=== PATIENT | female | born 1940 | race Caucasian/White ===

== ENCOUNTER 2018-01-25 06:54 | Day surgery (SDC) | payer OTHER ==
[2018-01-25] MEDS ORDERED: NA CHLORIDE 0.9% 500 ML ONE (07:29)
[2018-01-25] MEDS ORDERED: CYCLOPENTOLATE 1% OPTH 2 ML ONE (07:36)
[2018-01-25] MEDS ORDERED: BUPIVACAINE 0.25% PF 10 ML VIAL ONE (07:37)
[2018-01-25] MEDS ORDERED: CYCLOPENTOLATE 1% OPTH 2 ML OPTH ONE ×2 (07:46→07:54)
[2018-01-25] MEDS ORDERED: NS 0.9% VIAL 10 ML ONE (08:03)
[2018-01-25] MEDS ORDERED: BALANCED SALT IRRIG PLAIN 500 ML BTL IRR ONE (08:04)
[2018-01-25] MEDS ORDERED: MOXIFLOXACIN HCL 10 DROPS/ML **OR USE OPTH ONE (08:05)
[2018-01-25] MEDS ORDERED: DUOVISC 1 KIT OPTH ONE (08:05)
[2018-01-25] MEDS ORDERED: LIDOCAINE 2% MPF 5 ML VIAL ONE (08:05)
[2018-01-25] MEDS ORDERED: PROPOFOL 200 MG/20 ML VIAL IV ONE (08:05)
[2018-01-25] MEDS ORDERED: PHENYLEPHRINE 10% OPTH 5ML ONE (08:21)
--- NOTE | 2018-01-25 09:17 | P.BOP ---
Preoperative diagnosis: Nuclear sclerotic cataract and regular astigmatism OD Postoperative diagnosis: Same Primary procedure: Phacoemulsification with IOL OD Estimated blood loss: None Anesthesia: Local (Subtenon's infusion with anesthesia for cataract surgery) Complications: None Implants: [id number] +19.0 @ 16 degrees Transferred to: Other (Day surgery) Condition: Good
--- NOTE | 2018-01-25 13:49 | OP ---
Date of Procedure: 01/25/2018 Surgeon: Meera Mojica MD Anesthesiologist: Anand Mg CRNA. Preoperative Diagnosis: Nuclear sclerotic cataract and regular astigmatism, right eye. Operation Performed: Phacoemulsification with Toric intraocular lens implant, right eye. Anesthesia: Per cataract surgery. Complications: None Description Of Procedure: In day surgery, the patient was prepped with Betadine and draped. A conjunctival incision was made in the inferior nasal quadrant with Dang scissors. A sub-Tenon block consisting of 0.25% bupivacaine was placed through the conjunctival incision with a blunt cannula. A Honan balloon was placed over the eye and the patient was transferred to the operating room. In the operating room the patient was prepped and draped in the usual sterile fashion for ophthalmic surgery. A lid speculum was placed in the right eye. Two paracentesis sites were made superiorly and inferiorly in the limbal cornea. Viscoat was placed in the anterior chamber and a crescent blade was used to make a corneal groove and tunnel, and a keratome was used to enter the anterior chamber. Provisc was placed in the anterior chamber and a 360 degree capsulotomy was performed with a cystitome. The lens was hydrodissected with BSS and rotated freely. The lens was removed with a stop and chop technique. 14.09 phaco CDE was used to remove the lens. Residual cortex was removed with the irrigation and aspiration. Provisc was placed in the capsular bag. A [id number] +19.0 at 16 degrees lens was placed in the capsular bag without complications. Irrigation and aspiration was used to remove residual viscoelastic. The paracentesis sites were hydrated with BSS. The wound and paracentesis sites were inspected and found to be watertight. Vigamox 0.07 cc was placed intracamerally at the end of the procedure. The eye was irrigated with balanced salt solution. The eye was patched with a soft cotton patch and Ochoa metal shield. The patient was returned to day surgery in good condition. Comments: No lidocaine, epinephrine, or tetracaine was used for the case. Discharge Instructions: Ms. Alcala was discharged to home in good condition and is to follow up with Dr. Mojica in the morning. MILVIA/DEZ Voice ID: [id number] Report ID: [id number] MTDD
== END 2018-01-25 10:10 | disposition home or self-care (01) ==
LOC: OR 06:54
PROVIDERS: ATTEND Ophthalmology Retina Specialist
PROC: 08RJ3JZ Replacement of Right Lens with Synthetic Substitute, Percutaneous Approach (ICD-10-PCS; principal; 2018-01-25 08:30)
DX: H25.11 Age-related nuclear cataract, right eye (principal); H25.041 Posterior subcapsular polar age-related cataract, right eye; H52.221 Regular astigmatism, right eye
CPT/HCPCS: V2787

== ENCOUNTER 2023-12-29 07:59 | Day surgery (SDC) | payer OTHER ==
[2023-12-29 08:47] VITALS: BMI 23.3
[2023-12-29 08:47] LABS: Absolute Eosinophils 0.3 K/uL (0-0.5); Absolute Monocytes 0.7 K/uL (0.1-1.3); Absolute Neutrophil 1.8 K/uL (1.8-8.0); Basophils % 0.5 % (0-1.3); Eosinophils % 4.1 % (0-4.4); Lymphocytes % 58.7 % (15.3-44.8); MCH 32.1 pg (27.0-35.0); MCHC 33.3 g/dL (32.0-36.0); MCV 96.4 fL (80-100); MPV 8.4 fL (7.6-11.3); Monocytes % 10.5 % (3.3-12.3); Neutrophils % 26.2 % (41.7-73.7); Nucleated Red Blood Cells % 0.2 % (0-0); Platelets 225 thou/uL (152-406); RBC Red Blood Cell Count 3.73 M/uL (3.86-4.86); Red Cell Distribution Width 13.1 % (12.1-15.2)
[2023-12-29 08:50] LABS: PT Prothrombin Time 10.9 SECONDS (9.4-12.5); PTT, Activated Partial Thromb 31.7 SECONDS (24.3-36.9); Protime INR 0.99
[2023-12-29 09:10] LABS: ALT/SGPT 26 U/L (13-56); AST/SGOT 14 U/L (15-37); Albumin 3.4 g/dL (3.4-5.0); Albumin/Globulin Ratio 1.1 (1.1-1.8); Alkaline Phosphatase 47 U/L (45-117); Anion Gap 4.9 mEq/L (5.0-15.0); BUN Blood Urea Nitrogen 21 mg/dL (7-18); Bicarbonate 31 mEq/L (21-32); Bilirubin Total 0.4 mg/dL (0.2-1.0); Globulin 3.1 g/dL (2.3-3.5); Glomerular Filtration Rate 53 ml/min (=/>90); Glucose Level 131 mg/dL (74-106); Potassium 3.9 mEq/L (3.5-5.1); Protein, Total 6.5 g/dL (6.4-8.2); Sodium Level 141 mEq/L (136-145)
[2023-12-29 09:25] LABS: Bilirubin Direct < 0.2 mg/dL (0-0.2); Bilirubin Indirect, Calculated 0.2 mg/dL (0.2-0.8)
[2023-12-29] MEDS ORDERED: BUPIVACAINE 0.75% MPF 10 ML VIAL IV ONE (10:00)
--- NOTE | 2023-12-29 11:56 | RAD REPORT ---
EXAM DESCRIPTION: RAD - Lumbar Puncture For Dx - 12/29/2023 11:44 am CLINICAL HISTORY: Lumbar Spine 3 Views dated 06/11/2017 COMPARISON: None. TECHNIQUE: The procedure, risks and alternatives to the procedure were discussed with the patient in detail. After answering all questions, both oral and written consent were obtained. Time-out procedu re was performed. The patient was placed in an oblique prone position on the fluoroscopic table. The skin of the lower back was prepped and draped in the usual sterile fashion. After anesthetizing the skin and deeper sof t tissues with 1% lidocaine, a 22 gauge needle was advanced into the thecal sac at the L2-3 level. At the conclusion of the procedure the needle was withdrawn and a sterile bandage placed over the pun cture site. The patient tolerated the procedure well without immediate complications. Post-procedure care and precaution instructions were discussed with the patient before the LP procedure. Fluoroscopy time: 0.1 minutes Radiation dose: 9.843 mGy IMPRESSION: Successful fluoroscopic guided lumbar puncture. All obtained fluid was sent to the lab f or studies requested by the referring physician.
[2023-12-29 12:26] LABS: CSF Glucose 74 mg/dL (40-70)
[2023-12-29] MEDS ORDERED: TRAMADOL HCL 50 MG TAB PO ONE (13:10)
[2023-12-29] MEDS: TRAMADOL HCL 50 MG TAB ONE (13:18)
[2023-12-29 13:56] LABS: Fluid Total Volume 6.75 ml; Tube # #2
[2023-12-29 13:57] LABS: Appearance CLEAR (CLEAR); Body Fluid Source CSF; Body Fluid WBC 1 /mm^3; Color of Supernate Not Xanthochromic (Not Xantho); Color of fluid Pink (COLORLESS)
[2023-12-29 14:32] VITALS: BP 107/48; TEMP 96.6; O2SAT 100
== END 2023-12-29 13:50 | disposition home or self-care (01) ==
LOC: DS 07:59
PROVIDERS: ATTEND Psychiatry & Neurology Neurology with Special Qualifications in Child Neurology
PROC: 009U3ZX Drainage of Spinal Canal, Percutaneous Approach, Diagnostic (ICD-10-PCS; principal; 2023-12-29)
PROC: B01BZZZ Fluoroscopy of Spinal Cord (ICD-10-PCS; 2023-12-29)
DX: F03.90 Unspecified dementia, unspecified severity, without behavioral disturbance, psychotic disturbance, mood disturbance, and anxiety (principal); I10 Essential (primary) hypertension; E11.9 Type 2 diabetes mellitus without complications; E78.5 Hyperlipidemia, unspecified
CPT/HCPCS: 36415; 77003; 80048; 80076; 82542; 82945; 84157; 85025; 85610; 85730; 89050

== ENCOUNTER 2024-10-25 14:19 | Emergency (ER) | payer OTHER ==
--- OUTSIDE RECORDS SUMMARY | 2024-10-25 14:22 | XMS REPORT | Clinical Summary ---
Author Name Unknown Organization [facility] Address [address] [place] [address] Care Team Providers Care Drag Seiner Name Role Phone Rani Wade MD Unavailable [phone] Rosalva Harris MD Unavailable [phone] Luz Gomez APRN Primary Care Provider Allergies Active Allergy Reactions Criticality Noted Date Comments Epinephrine Anaphylaxis High 01/25/2018 Lidocaine-Epinephrine 02/16/2019 Patient passing out. Morphine 02/16/2019 Can't breath Sulfa (Sulfonamide Antibiotics) Swelling 02/16/2019 Swelling of the lips and can't breath. Hydrocodone-Acetaminophen Hives 02/16/2019 Medications levothyroxine (SYNTHROID, LEVOTHROID) 25 mcg tablet Take 1 tablet (25 mcg) by mouth daily. 9 Active spironolactone (ALDACTONE) 25 mg tablet Take 1 tablet (25 mg) by mouth daily. 9 Active ASPIRIN ORAL Take 81 mg by mouth daily. Active CALCIUM CARBONATE-VITAM IN D2 ORAL Take 1 capsule by mouth daily. Active fish oil-dha-epa 1,200-144-216 mg cap Take 1 tablet by mouth daily. 1 Active polyethylene glycol (GLYCOLAX) 17 gram/dose powder Take 17 g by mouth daily. Active ezetimibe (ZETIA) 10 mg tablet Take 1 tablet (10 mg) by mouth at bedtime. 0 Active turmeric (CURCUMIN MISC) 500 mg by miscellaneous route twice daily. Active GLUCOSAMINE HCL ORAL Take 1 tablet by mouth daily. Active UNABLE TO FIND 1 tablet daily. Med Name: viteye Active multivitamin (THERAGRAN) tablet Take 1 tablet by mouth daily. Active VITAMIN K2 ORAL Take 1 tablet by mouth daily. Active acetaminophen (TYLENOL) 500 mg tablet Take 1 tablet (500 mg) by mouth daily. Active raloxifene (EVISTA) 60 mg tabletIndicatio ns:Atypical lobular hyperplasia of breast,At increased risk of malignant neoplasm of breast Take 1 tablet (60 mg) by mouth daily. 90 tablet 3 3 Active predniSONE (DELTASONE) 20 mg tablet TAKE TWO (2) TABLET(S) BY MOUTH ONCE A DAY FOR 5 DAYS. 3 Active memantine (NAMENDA) 10 mg tablet TAKE ONE (1) TABLET(S) BY MOUTH TWICE A DAY. 3 Active gabapentin (NEURONTIN) 300 mg capsule TAKE ONE (1) CAPSULE(S) BY MOUTH THREE TIMES A DAY. 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 Overview (02/05/2021): bilateral bindery machine tender current use of raloxifene 10/27/2018 Overview (08/12/2021): will complete 5 years in 10/2023 Atypical lobular hyperplasia of left breast 06/2018 Encounters Date Type Department Care Team Description 11/10/2023 Documentation [facility] [address] [facility], 2nd Floor near [facility] [place] [id number] Rosa Bentley 10/27/2023 Telephone Undiagnosed Breast Clinic [address] [facility], 5th [place] [address] Sheila Grigsby RN Results 10/27/2023 Orders Only [facility] [address] [facility], 2nd [place] [address] Luz Gomez, DRILLING SUPERINTENDENT Encounter for other screening for malignant neoplasm of breast (Primary Dx); Atypical lobular hyperplasia of breast; At increased risk of malignant neoplasm of breast after 10/26/2023 Immunizations Name Administration Dates Next Due Influenza, split virus, triv alent, preservative 05/04/2019 Moderna SARS-CoV-2 Vaccination 04/19/2021,2020,06/25/2020 Surgical History Surgery Date Site/Laterality Comments APPENDECTOMY 06/29/1975 - 06/28/1976 C section opportunity COLONOSCOPY Many. Last time approx 2014 Twice polyps removed BREAST LUMPECTOMY 09/27/2018 - 10/26/2018 Atypical lobular hyperplasia (ALH). HYSTERECTOMY 06/29/1989 - 06/28/1990 Total hysterectomy in 1989 due to stomach/pelvic pain. SHOULDER SURGERY Left DIANA in 1999 ME COLONOSCOPY FLX DX W/COLLJ SPEC WHEN PFRMD 03/11/2021 N/A Procedure: DIAGNOSTIC FLEXIBLE COLONOSCOPY PROXIMAL TO SPLENIC FLEXURE; Surgeon: Josh Guerrero MD; Location: [facility]; Service: GASTROENTEROLOGY ME COLONOSCOPY FLX DX W/COLLJ SPEC WHEN PFRMD 03/19/2023 N/A Procedure: DIAGNOSTIC FLEXIBLE COLONOSCOPY PROXIMAL TO SPLENIC FLEXURE; Surgeon: Josh Guerrero MD; Location: [facility]; Service: GASTROENTEROLOGY Medical History Medical History Date Comments Hyperlipidemia 08/28/2003 Total 275. Used statin drug for 10 years until adverse react Migraine Age 18 Sinusitis About 21 years Unspecified lump in unspecif ied breast Always Cyst of breast [address] Marivel Lauren Colitis About 40 years ago Completely re covered Polyp of colon 2 removed Benign Endometriosis About 1989 Peter matter insi de uterus. 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 Ignore d for a year. as a result Urinary tract infection Daughter -Colon cancer Father Amos Rutherford Age 65 -1 6 inches of colon removef -Other cancer Father Amos Rutherford Lung canc er Alzheimer's disease Mother Relation Name Status Comments Brother Amos Rutherford . Daughter Father Amos Rutherford Mother Social History Tobacco Use Types Packs/Day Years Used Date Smoking Tobacco: Former Cigarettes 1 4 0 03/08/1961 - 11/15/1964 Smokeless Tobacco: Never Tobacco Cessation:Counseling Given: Not Answered Comments:Stupid during college Alcohol Use Standard Drinks/Week Comments Yes 0 (1 standard drink = 0.6 oz pur e alcohol) Not even that much Comments No Sex and Gender Information Value Date Recorded Sex Assigned at Female 03/05/2021 9:13 AM CDT Legal Sex Female 1:29 PM CDT Gender Identity Female 02/11/2019 9:43 PM CDT Sexual Orientation Straight 02/11/2019 9: 43 PM CDT Obstetrics History Para Term AB IAB SAB Ectopic Multiple Livin g Live Births 2 2 2 Date Outcome GA Total Labor Labor/2nd/3rd Weight Sex Type Anes PTL Muriel A1 A5 Name Clin Para Para Comments Menarche: at age 14 Parity: at age 29 OBC: <1 year HRT: none Plan of Treatment Upcoming Encounters Date Type Department Care Team (Late st Contact Info) Description 11/24/2024 12:15 PM CDT Appointment Breast Imaging [address] [facility], 5th [place] [address] Luz Gomez, DRILLING SUPERINTENDENT [address] [place] [address] [email or web address] 11/24/2024 12:50 PM CDT Appointment Breast Imaging [address] [facility], 5th [place] [address] Luz Gomez, DRILLING SUPERINTENDENT [address] [place] [address] [email or web address] 11/24/2024 3:20 PM CDT Office Visit [facility] ([facility]) [address] [facility], [address] [place] [address] Luz Gomez, DRILLING SUPERINTENDENT [address] [place] [address] [email or web address] [facility] Mamie Melendez, DRILLING SUPERINTENDENT [address] [place] [address] [email or web address] 03/28/2026 8:30 AM CDT Telemedicine MD [facility] - GI, Hepatology & Nutrition [address] [place] [address] Josh Guerrero MD [address] [place] [address] [email or web address] Health Maintenance Due Date Last Done Comments Pneumococcal Vaccine: 50+ Ye ars (1 of 1 - PCV) 1992 COVID-19 Vaccine (2023- season) 2024 04/19/2021, 2020, 06/25/2020 Influenza Vaccine (#1) 2024 05/04/2019 Insurance A[employer] MEDICARE PPO AET[employer] MEDICARE PPO Care Teams Drag Seiner Relationship Specialty Start Date End Date Rani Wade MD [email or web address] PCP - External Follow Up A Obstetrics/Gynecology 02/04/19 Rosalva Harris MD [address] [id number] PCP - External Follow Up B General Surgery 02/16/19 Luz Gomez APRN [address] [place] [address] [email or web address] [email or web address] PCP - General Family Practice 09/08/22
[2024-10-25 15:24] LABS: Absolute Basophils 0.1 K/uL (0-0.5); Absolute Eosinophils 0.2 K/uL (0-0.5); Absolute Lymphocytes (CBC) 5.6 K/uL (0.7-4.9); Absolute Monocytes 1.1 K/uL (0.1-1.3); Absolute Neutrophil 8.7 K/uL (1.8-8.0); Basophils % 0.8 % (0-1.3); Eosinophils % 1.5 % (0-4.4); Hematocrit 37.8 % (36.0-45.0); Hemoglobin 12.8 g/dL (12.0-15.0); Lymphocytes % 35.8 % (15.3-44.8); MCH 31.5 pg (27.0-35.0); MCHC 33.8 g/dL (32.0-36.0); MCV 93.2 fL (80-100); MPV 9.1 fL (7.6-11.3); Monocytes % 6.9 % (3.3-12.3); Nucleated Red Blood Cells % 0.1 % (0-0); Platelets 203 thou/uL (152-406); RBC Red Blood Cell Count 4.05 M/uL (3.86-4.86); Red Cell Distribution Width 13.8 % (12.1-15.2)
[2024-10-25 15:48] LABS: Anion Gap 7.9 mEq/L (5.0-15.0)
[2024-10-25 15:50] LABS: Potassium 4.9 mEq/L (3.5-5.1)
--- NOTE | 2024-10-25 16:10 | RAD REPORT ---
EXAMINATION: Head C Spine Mpr Wo Con CLINICAL INDICATION: Female, 84 years old. TRAUMA TECHNIQUE: Axial CT images from the skull base to the vertex without intravenous contrast. Axial CT i mages through the cervical spine were obtained without intravenous contrast. Sagittal and coronal reformatted images were created from the data set. Coronal and sagittal reformatted images were creat ed from the data set. One or more of the following dose reduction techniques were used: Automated exposure control, adjustment of the mA and/or kV according to patient size, and/or iterative reconstr uction. Unless otherwise specified, incidental findings do not require dedicated imaging follow-up. [id number]. COMPARISON: MRI head 08/03/2024 FINDINGS: Head: INTRACRANIAL: No acute intracranial hemorrhage. No hydrocephalus. No mass effect or midline shift. Mi ld chronic small vessel ischemic changes.Mild cerebral atrophy. VASCULATURE: No visualized abnormalities in the arteries or dural venous sinuses. SCALP/SKULL: No calvarial fracture identified. No acute soft tissue abnormality. SINUSES: Opacified left maxillary sinus with wall thickening is likely chronic.. No significant masto id fluid. Cervical spine: ALIGNMENT: The cervical spine has normal alignment without scoliosis or spondylolisthesis. BONE: Vertebral body heights are maintained. No aggressive osseous lesions. DEGENERATIVE: Multilevel cervical spondylosis with evidence of bilateral neural foraminal narrowing. No high grade central spinal stenosis. Varying degrees of bilateral neural foraminal narrowing noted. No high-grade central spinal stenosis. SOFT TISSUE: No significant abnormalities in the soft tissue of the neck. The visualized lung apices are clear. IMPRESSION: No acute intracranial abnormality. No acute fracture or traumatic malalignment of the cervical spine.
--- NOTE | 2024-10-25 16:37 | ER ---
Nurse's Notes [facility] Name: Nathalia Alcala Age: 84 yrs Sex: Female : 1940 Arrival Date: 10/25/2024 Time: 14:19 Bed 15 Private MD: Diagnosis: Postconcussional syndrome Presentation: 10/25 14:35 Chief complaint: Patient states: headaches s/p fall X 1week. + hit head, unsure if she iw passed out. Coronavirus screen: At this time, the client does not indicate any symptoms associated with coronavirus-19. Ebola Screen: No symptoms or risks identified at this time. Initial Sepsis Screen: Does the patient meet any 2 criteria? No. Patient's initial sepsis screen is negative. Does the patient have a suspected source of infection? No. Patient's initial sepsis screen is negative. Risk Assessment: Do you want to hurt yourself or someone else? Patient reports no desire to harm self or others. 14:35 Method Of Arrival: Wheelchair iw 14:35 Acuity: KHALIF 3 iw 14:36 Onset of symptoms was October 18, 2024. iw Triage Assessment: 14:38 General: Appears in no apparent distress. Behavior is calm, cooperative. Pain: iw Complains of pain in head and back of head. Neuro: Level of Consciousness is awake, alert, obeys commands. 15:00 Headache History: Denies prior headaches. Pain: Pain began 1 week ago Also complains kj2 of. Pain: Pain currently is 6 out of 10 on a pain scale. Historical: - Allergies: 14:36 Sulfa (Sulfonamide Antibiotics); iw 14:36 Morphine; iw 14:36 Lidocaine-Epinephrine; iw 14:36 Vicodin; iw 14:36 Wasps; iw - Immunization history:: Adult Immunizations unknown. - Infectious Disease History:: Denies. - Social history:: Smoking status: Patient denies any tobacco usage or history of. Screenin:50 [facility] ED Fall Risk Assessment (Adult) History of falling in the last 3 months, kj2 including since admission No falls in past 3 months (0 pts) Confusion or Disorientation No (0 pts) Intoxicated or Sedated No (0 pts) Impaired Gait No (0 pts) Mobility Assist Device Used No (0 pt) Altered Elimination No (0 pt) Score/Fall Risk Level 0 - 2 = Low Risk Maintained a safe environment, Hourly rounding (assess needs \T\ fall precautionary measures) done. Abuse screen: Denies threats or abuse. Denies injuries from another. Nutritional screening: No deficits noted. Tuberculosis screening: No symptoms or risk factors identified. Assessment: 14:50 General: Appears in no apparent distress. Behavior is cooperative. Pain: Complains of kj2 pain in back of head and head Pain currently is 6 out of 10 on a pain scale. Neuro: Level of Consciousness is awake, alert, obeys commands, Oriented to person, place, time, situation. Cardiovascular: Patient's skin is warm and dry. Respiratory: Airway is patent Respiratory effort is even, unlabored. GI: No signs and/or symptoms were reported involving the gastrointestinal system. : No signs and/or symptoms were reported regarding the genitourinary system. 15:50 Reassessment: Patient appears in no apparent distress at this time. Patient and/or kj2 family updated on plan of care and expected duration. Pain level reassessed. Patient is alert, oriented x 3, equal unlabored respirations, skin warm/dry/pink. 16:49 Reassessment: Patient appears in no apparent distress at this time. Patient and/or kj2 family updated on plan of care and expected duration. Pain level reassessed. Patient is alert, oriented x 3, equal unlabored respirations, skin warm/dry/pink. Vital Signs: 14:35 BP 122 / 56; Pulse 56; Resp 16; Temp 98.6; Pulse Ox 99% on R/A; iw 15:50 BP 118 / 58; Pulse 60; Resp 18; Pulse Ox 100% ; kj2 16:50 BP 107 / 54; Pulse 62; Resp 18; Temp 98; Pulse Ox 100% ; kj2 Sandee Coma Score: 16:36 Eye Response: spontaneous(4). Motor Response: obeys commands(6). Verbal Response: sb4 oriented(5). Total: 15. ED Course: 14:25 Patient arrived in ED. cj3 14:26 Henny Gunter PA-C is PHCP. sb4 14:26 Jose Earl MD is Attending Physician. sb4 14:36 Triage completed. iw 14:37 Arm band placed on. iw 14:54 Gisela Sanchez, ROXANA is Primary Nurse. ld1 15:00 Patient has correct armband on for positive identification. Bed in low position. Call kj2 light in reach. Provided Education on: call light. 15:18 Inserted saline lock: 20 gauge in right antecubital area, using aseptic technique. kj2 Blood collected. Flushed with 10 mL NS. 15:46 Head C Spine Mpr Wo Con In Process Unspecified. EDMS 16:37 Ramos Moreland MD is Referral Physician. sb4 16:51 No provider procedures requiring assistance completed. kj2 16:53 IV discontinued, intact, bleeding controlled, No redness/swelling at site. Pressure kj2 dressing applied. Administered Medications: 17:03 Drug: Meclizine PO 25 mg PO once Route: PO; kj2 17:03 Follow up: Response: No adverse reaction kj2 17:03 Follow up: Response: No adverse reaction kj2 Medication: 14:50 VIS not applicable for this client. kj2 Outcome: 16:37 Discharge ordered by MD. sb4 16:53 Discharged to home ambulatory, kj2 16:53 Condition: stable 16:53 Discharge instructions given to patient, family, Instructed on discharge instructions, follow up and referral plans. Demonstrated understanding of instructions, follow-up care, 17:04 Patient left the ED. kj2 Signatures: Dispatcher [employer] Amanda Coelho, RN RN iw Gisela Sanchez RN RN ld1 Henny Gunter, PA-C PA-C sb4 Jemma Pitts RN RN kj2 Jerilyn Da Silva cj3 Corrections: (The following items were deleted from the chart) 14:37 14:35 Chief complaint: Patient states: headaches s/p fall , + hit head, unsure if she iw passed out iw 15:25 15:05 In radiology for Head C Spine MPR Wo Con+CT.RAD.BRZ. EDMS EDMS
--- NOTE | 2024-10-25 16:37 | EDPHYS ---
Physician Documentation [facility] Name: Nathalia Alcala Age: 84 yrs Sex: Female : 1940 Arrival Date: 10/25/2024 Time: 14:19 Bed 15 Private MD: ED Physician Jose Earl HPI: 10/25 14:42 This 84 yrs old Female presents to ER via Wheelchair with complaints of Headache. sb4 14:42 Patient states that she jumped onto a shovel about 10 days ago in order to digging to sb4 the ground but it did not budge and she ended up falling backwards. States that she had her back in her head. Does not think that she lost consciousness but she definitely felt "dazed "and was slow afterwards. States that since then, she has been dealing with a frontal headache as well as some unsteadiness on her feet. Denies any nausea, vomiting, blurry vision. Is not on any blood thinners. Denies any other injuries. Historical: - Allergies: 14:36 Sulfa (Sulfonamide Antibiotics); iw 14:36 Morphine; iw 14:36 Lidocaine-Epinephrine; iw 14:36 Vicodin; iw 14:36 Wasps; iw - Immunization history:: Adult Immunizations unknown. - Infectious Disease History:: Denies. - Social history:: Smoking status: Patient denies any tobacco usage or history of. ROS: 14:42 Constitutional: Negative for fever, chills, and weight loss, sb4 14:42 Neuro: Positive for dizziness, headache, 14:42 All other systems are negative, Exam: 14:42 Constitutional: This is a well developed, well nourished patient who is awake, alert, sb4 and in no acute distress. Head/Face: Normocephalic, atraumatic. Eyes: Extra-ocular motions intact. Periorbital areas with no swelling, redness, or edema. ENT: Mucous membranes moist. Cardiovascular: Regular rate and rhythm with a normal S1 and S2. Respiratory: No increased work of breathing, no retractions or nasal flaring. Abdomen/GI: Soft, non-tender, no distension. Skin: Warm, dry with normal turgor. Normal color with no rashes, no lesions, and no evidence of cellulitis. MS/ Extremity: Pulses equal, no cyanosis. Neurovascular intact. Full, normal range of motion. 14:42 Neuro: Orientation: to person, place, time \\T\\ situation. Mentation: is normal, appropriate for stated age, no acute changes, per family, Memory: is normal, Motor: moves all fours, Sensation: is normal, 14:44 Eyes: Pupils: equal, round, and reactive to light and accomodation, sb4 Vital Signs: 14:35 BP 122 / 56; Pulse 56; Resp 16; Temp 98.6; Pulse Ox 99% on R/A; iw 15:50 BP 118 / 58; Pulse 60; Resp 18; Pulse Ox 100% ; kj2 16:50 BP 107 / 54; Pulse 62; Resp 18; Temp 98; Pulse Ox 100% ; kj2 Sandee Coma Score: 16:36 Eye Response: spontaneous(4). Motor Response: obeys commands(6). Verbal Response: sb4 oriented(5). Total: 15. MDM: 14:26 Medical Screening Exam initiated sb4 16:36 Data reviewed: vital signs, nurses notes, lab test result(s), radiologic studies, and sb4 as a result, I will discharge patient. Historians other than the Patient: Spouse/Significant Other: . Counseling: I had a detailed discussion with the patient and/or guardian regarding the historical points, exam findings, and any diagnostic results supporting the discharge/admit diagnosis, lab results, radiology results, the need for outpatient follow up, for definitive care, to return to the emergency department if symptoms worsen or persist or if there are any questions or concerns that arise at home. 10/25 14:41 Order name: CBC with Diff; Complete Time: 17:01 sb4 10/25 14:41 Order name: BMP; Complete Time: 15:50 sb4 10/25 16:57 Order name: CBC Smear Scan; Complete Time: 17:01 EDMS 10/25 15:26 Order name: Head C Spine Mpr Wo Con; Complete Time: 16:16 EDMS 10/25 14:41 Order name: IV Start; Complete Time: 15:18 sb4 Administered Medications: 17:03 Drug: Meclizine PO 25 mg PO once Route: PO; kj2 17:03 Follow up: Response: No adverse reaction kj2 17:03 Follow up: Response: No adverse reaction kj2 Disposition Summary: 10/25/24 16:37 Discharge Ordered Notes: Location: Home sb4 Problem: an ongoing problem sb4 Symptoms: are unchanged sb4 Condition: Stable sb4 Diagnosis - Postconcussional syndrome sb4 Followup: sb4 - With: Ramos Moreland MD - When: 1 week - Reason: Recheck today's complaints, Re-evaluation by your physician Discharge Instructions: - Discharge Summary Sheet sb4 - Post-Concussion Syndrome, Ginx-[id number] sb4 - Dizziness, Ldue-gh-Pwxh sb4 Forms: - Patient Portal Instructions sb4 - Leadership Thank You Letter sb4 Prescriptions: - Meclizine 25 mg Oral Tablet - take 1 tablet ORAL route every 8 hours As needed; 30 tablet; Refills: 0, sb4 Product Selection Permitted - Diclofenac Sodium 75 mg Oral Tablet Sustained Release - take 1 tablet ORAL route 2 times per day; 30 tablet; Refills: 0, Product sb4 Selection Permitted Addendum: 10/27/2024 07:03 Co-signature as Attending Physician, Jose Earl MD I reviewed the patient's care r n provided by the Advanced Practice Provider and agree with the diagnosis and treatment plan. Signatures: Dispatcher [employer] Amanda Coelho, RN Jose Dominguez MD MD rn Brown, Sophia PA-C PA-C sb4 Jemma Pitts RN RN kj2 Corrections: (The following items were deleted from the chart) 10/25 14:56 14:42 MS/extremity: Positive for sb4 sb4 15:25 14:41 Head C Spine MPR Wo [id number].BRZ ordered. EDMS EDMS
[2024-10-25] MEDS ORDERED: MECLIZINE HCL 12.5 MG TAB ONE (16:56)
[2024-10-25 16:57] LABS: Blood Morphology Comment NOT SEEN (NOT SEEN); Platelet Estimate ADEQ; Platelets Clumped FEW; White Blood Cell Scan OK (OK)
[2024-10-26 06:42] VITALS: O2SAT 100
[2024-10-26 06:43] VITALS: BP 107/54; TEMP 98
== END 2024-10-25 17:04 | disposition home or self-care (01) ==
LOC: ER 14:19
DX: R51.9 Headache, unspecified (principal); F07.81 Postconcussional syndrome; W18.30XA Fall on same level, unspecified, initial encounter
CPT/HCPCS: 85025; 80048; 36415; 70450; 72125; J8597

== ENCOUNTER 2025-02-19 09:37 | Emergency (ER) | payer OTHER ==
--- OUTSIDE RECORDS SUMMARY | 2025-02-19 09:44 | XMS REPORT | Clinical Summary ---
Author Name Unknown Organization [facility] Address [address] [place] [address] Care Team Providers Care Ride Assembly Supervisor Name Role Phone Rani Wade MD Unavailable [phone] Rosalva Harris MD Unavailable [phone] Luz Gomez APRN Primary Care Provider Allergies [...] (02/20/2023): Added automatically from request for surgery [id number] Personal history of colon polyps 02/20/2023 Overview (02/20/2023): Added automatically from request for surgery [id number] Family history of malignant neoplasm of gastrointestinal tract 02/13/2021 Overview (02/13/2021): Added automatically from request for surgery [id number] Thyroid eye disease 06/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 Overview (02/05/2021): bilateral senior care current use of raloxifene 10/27/2018 Overview (08/12/2021): will complete 5 years in 10/2023 Atypical lobular hyperplasia of left breast 06/2018 Encounters Date Type Department Care Team Description 12/06/2024 Documentation [facility] [address] [facility] [place] [address] Kae Wilcox 11/24/2024 3:20 PM CDT Office Visit [facility] ([facility] [place]) [address] [place] [address] Luz Gomez, Mamie Ramos APRN At increased risk of malignant neoplasm of breast (Primary Dx); Atypical lobular hyperplasia of breast; Heterogeneously dense breast composition; Encounter for other screening for malignant neoplasm of breast 11/24/2024 1:30 PM CDT - 11/24/2024 11:59 PM CDT Hospital Encounter Breast [facility] ([facility] [place]) [address] [facility] [address] [facility] [address], [address] [place] [address] Luz Gomez APRN Encounter for other screening for malignant neoplasm of breast; Atypical lobular hyperplasia of breast; At increased risk of malignant neoplasm of breast Discharge Disposition: Home 11/24/2024 12:45 PM CDT - 11/24/2024 1:29 PM CDT Hospital Encounter Breast [facility] ([facility] [place]) [address], [address] [place] [address] Unspecified lump in unspecified breast Discharge Disposition: Home 11/24/2024 12:22 PM CDT - 11/24/2024 12:24 PM CDT Hospital Encounter [facility] ([facility] [place]) [address] [facility] [address] [facility] [address] [place] [address] Breanna Marte MD Exam of participant in clinical research Discharge Disposition: Home 11/24/2024 Orders Only [facility] ([facility] [place]) [address], [address] [place] [address] Mamie Melendez APRN Unspecified lump in unspecified breast (Primary Dx) 11/24/2024 Travel 11/24/2024 Orders Only Breast Imaging [address] [facility] [place] [address] Polo, Domingo B, RN Exam of participant in clinical research (Primary Dx) 11/16/2024 Documentation Breast Imaging [address] [facility] [place] [address] Al Morton, RT after 02/20/2024 Immunizations Immunization Administration Dates Next Due Influenza, split virus, [...] pain. SHOULDER SURGERY Left DIANA in 1999 MD COLONOSCOPY FLX DX W/COLLJ SPEC WHEN PFRMD 03/11/2021 N/A Procedure: DIAGNOSTIC FLEXIBLE COLONOSCOPY PROXIMAL TO SPLENIC FLEXURE; Surgeon: Josh Guerrero MD; Location: [facility]; Service: GASTROENTEROLOGY MD COLONOSCOPY FLX DX W/COLLJ SPEC WHEN PFRMD 03/19/2023 N/A Procedure: DIAGNOSTIC FLEXIBLE COLONOSCOPY PROXIMAL TO SPLENIC FLEXURE; Surgeon: Josh Guerrero MD; Location: [facility]; Service: GASTROENTEROLOGY BREAST BIOPSY HISTORY 10/23/2023 Right STEREOTACTIC BREAST BX HISTORY 03/04/2019 Left BIOPSY EXCISIONAL BREAST 09/27/2018 - 10/26/2018 Left Medical History Medical History Date Comments Hyperlipidemia [...] SARS-CoV-2 vaccination 06/25/2020 Moderna Thyroid eye disease 2021 bilateral Atypical lobular hyperplasia of left breast 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 Ignore d for a year. as a result Urinary tract infection Daughter -Colon cancer Father Amos Rutherford Age 65 -1 6 inches of colon removef -Other cancer Father Amos Rutherford Lung canc er Alzheimer's disease Mother Relation Name Status Comments Brother Amos Rutherford Daughter Father Amos Rutherford Mother Social History [...] Livin g Live Births 2 2 2 2 Date Outcome GA Total Labor Labor/2nd/3rd Weight Sex Type Anes PTL Muriel A1 A5 Name Clin Term Term Comments Menarche: at age 14 Parity: at age 29 OBC: <1 year HRT: none Last Filed Vital Signs Vital Sign Reading Time Taken Comments Blood Pressure 130/55 11/24/2024 4:26 PM CDT Pulse 59 11/24/2024 4:26 PM CDT Asymptomatic. Normal for her. Very relaxed Temperature - - Respiratory Rate 16 11/24/2024 4:26 PM CDT Oxygen Saturation - - Inhaled Oxygen Concentration - - Weight 59 kg (130 lb 1.1 oz) 11/24/2024 4:10 PM CDT Height 156 cm (5' 1.42") 11/24/2024 4:1 0 PM CDT Body Mass Index 24.24 11/24/2024 4:10 PM CDT Plan of Treatment Upcoming Encounters Date Type Department Care Team (Late st Contact Info) Description 03/28/2026 8:30 AM CDT Telemedicine MD [facility] - GI, Hepatology & Nutrition [address] [place], [place] [id number] Josh Guerrero MD [address] [place] [address] [email or web address] Health Maintenance Due Date Last Done Comments Pneumococcal Vaccine: 50+ Ye ars (1 of 1 - PCV) 1992 COVID-19 Vaccine (4 - season) 2024 04/19/2021, 2020, 06/25/2020 Influenza Vaccine (#1) 2025 05/04/2019 Procedures Procedure Name Priority Date/Time Associated Diagnosis Comments US BREAST COMPLETE BILATERAL Routine 11/24/2024 2:43 PM CDT Encounter for other screening for malignant neoplasm of breast Atypical lobular hyperplasia of breast At increased risk of malignant neoplasm of breast MAMMO DIGITAL DIAGNOSTIC BILATERAL W DHRUV Routine 11/24/2024 1:29 PM CDT Unspecified lump in unspecified breast after 02/20/2024 Results * US Breast Complete Bilateral (11/24/2024 2:43 PM CDT) Anatomical Region Laterality Modality Breast Bilateral Ultrasound Impressions 11/24/2024 2:56 PM CDT Bilateral No suspicious sonographic findings identified. Overall BI-RADS Category: 2 - Benign Recommend return to annual screening mammography, due on 10/2025. Narrative 11/24/2024 2:56 PM CDT CLINICAL INDICATION: Patient is a 84 y.o. female and is seen for atypical lobular hyperplasia. US Breast Complete Bilateral COMPARISON: The present examination has been compared to prior imaging studies performed : 10/30/2020 [facility], 08/12/2021 US Breast Complete Bilateral at [facility], 09/08/2022 [facility], 09/21/2023 [facility] B[facility], 10/23/2023 US Breast Biopsy - Right at [facility], 10/23/2023 Post Procedure Mammogram Right at [facility], 11/24/2024 Mammography Digital Diagnostic Bilateral with Dhruv at [facility] TECHNIQUE: Real-time sonographic imaging was performed on the following regions: bilateral, breast (including all 4 quadrants and retroareolar region). Images were obtained in multiple scanning planes. FINDINGS: Left 1) Post-Surgical Finding: There is a scar from a previous lumpectomy seen in the left breast. The post-surgical findings and associated clip correlate with the palpable finding reported by the patient and with the mammogram finding today. Compared to the previous study, the post-surgical findings are unchanged. There has been no interval development of a suspicious finding. 2) Mass: There is an oval, parallel, hypoechoic mass with circumscribed margins seen in the left breast at 12 o'clock. No suspicious sonographic findings identified. Right 3) Clip: There is a coil-shaped biopsy clip seen in the right breast at 9 o'clock, 4 cm from the nipple. Ultrasound-guided biopsy in 2023 was benign. No suspicious sonographic findings identified. us Luz Gomez APRN IM US ORDERABLES Final Result * Mammography Digital Diagnostic Bilateral with Dhruv (11/24/2024 1:29 PM CDT) Anatomical Region Laterality Modality Breast Bilateral Mammography Impressions 11/24/2024 2:16 PM CDT Bilateral There is no mammographic evidence of malignancy. Overall BI-RADS Category: 2 - Benign Recommend return to annual screening mammography, due on 10/2025. Narrative 11/24/2024 2:16 PM CDT CLINICAL INDICATION: Patient is a 84 y.o. female and is seen for palpable abnormality. Mammography Digital Diagnostic Bilateral with Dhruv Computer-aided detection was utilized by the radiologist in the interpretation of this examination. Tomosynthesis was performed in CC and MLO projections. COMPARISON: The present examination has been compared to prior imaging studies performed : 10/30/2020 [facility], 08/12/2021 Mammography Digital Screening Bilateral with Dhruv at [facility], 09/08/2022 Mammography Digital Screening Bilateral with Dhruv at [facility], 09/21/2023 Mammography Digital Screening Bilateral with Dhruv at [facility], 10/23/2023 Post Procedure Mammogram Right at [facility] FINDINGS: The breasts are heterogeneously dense, which may obscure small masses. Left 1) Calcifications: There are punctate calcifications in a regional distribution seen in the upper outer quadrant of the left breast, 9 cm from the nipple. Compared to the previous study, the calcifications are unchanged. There is an associated silvia-shaped clip. The silvia-shaped clip correlates with the area of palpable concern reported by the patient. Stereotactic biopsy of calcifications in 2019 was benign. Patient underwent outside left breast surgery in 2019 revealing atypical lobular hyperplasia. There is no evidence of suspicious masses, calcifications, or other abnormal findings in the left breast. Right 2) Clip: There is a coil-shaped biopsy clip seen in the right breast at 9 o'clock, 3 cm from the nipple. Compared to the previous study, the clip is unchanged. Ultrasound-guided biopsy in 2023 was benign. There is no evidence of suspicious masses, calcifications, or other abnormal findings in the right breast. Mamie Melendez [facility] MAMMO[facility]HY ORDERABLE S Final Result after 02/20/2024 Insurance [employer] MEDICARE PPO A[employer] MEDICARE PPO Advance Directives * Full Code (Latest Code Status on File) Date Activated Date Inactivated Comments 11/16/2024 12:02 PM Update based on Advanced Directive Documentation Care Teams Ride Assembly Supervisor Relationship Specialty Start Date End Date Rani Wade MD [email or web address] PCP - External Follow Up A Obstetrics/Gynecology 02/04/19 Rosalva Harris MD [address] [id number] PCP - External Follow Up B General Surgery 02/16/19 Luz Gomez APRN [address] [place], [place] [id number] [email or web address] PCP - General Family Practice 09/08/22
[2025-02-19 10:28] LABS: Absolute Lymphocytes (CBC) 3.8 K/uL (0.7-4.9); Hematocrit 40.2 % (36.0-45.0); Hemoglobin 13.0 g/dL (12.0-15.0); MCH 29.8 pg (27.0-35.0); MCHC 32.5 g/dL (32.0-36.0); MCV 91.9 fL (80-100); MPV 7.7 fL (7.6-11.3); Nucleated RBC Absolute Count 0.0 (0-0); Nucleated Red Blood Cells % 0.1 % (0-0); RBC Red Blood Cell Count 4.37 M/uL (3.86-4.86); White Blood Count 8.00 thou/uL (4.3-10.9)
--- NOTE | 2025-02-19 10:35 | RAD REPORT ---
EXAM: CT brain without contrast HISTORY: Dizziness COMPARISON: September 2024 TECHNIQUE: Multiple contiguous axial images were obtained and a CT of the brain without contrast.. Sagittal and coronal reconstruction performed. Automated exposure control, adjustment of the mA and/or kV according to patient size, and/or iterative reconstruction. Unless otherwise specified, incidental f indings do not require dedicated imaging follow-up FINDINGS: An intracranial bleed is not seen Ventricles are normal caliber No extra-axial fluid collection noted No significant hypodensity within the brain Chronic opacification left maxillary sinus. IMPRESSION: No acute intracranial abnormality noted. Chronic left maxillary sinusitis If the patient continues to have symptoms to suggest an acute intracranial abnormality then MRI of th e brain would be recommended.
[2025-02-19 10:37] LABS: PT Prothrombin Time 11.9 SECONDS (10-13.0); PTT, Activated Partial Thromb 25.2 SECONDS (27.2-37.4); Protime INR 1.05
[2025-02-19] MEDS ORDERED: NA CHLORIDE 0.9% 1,000 ML ONE (10:39)
[2025-02-19 10:47] LABS: ALT/SGPT 30.0 U/L (13-56); AST/SGOT 13.0 U/L (15-37); Albumin 3.3 g/dL (3.4-5.0); Albumin/Globulin Ratio 0.9 (1.1-1.8); Alkaline Phosphatase 72.0 U/L (45-117); Anion Gap 9.4 mEq/L (5.0-15.0); BUN Blood Urea Nitrogen 21.0 mg/dL (7-18); Globulin 3.8 g/dL (2.3-3.5); Glucose Level 154.0 mg/dL (74-106); Magnesium 2.6 mg/dL (1.6-2.4); Potassium 4.4 mEq/L (3.5-5.1); Troponin High Sensitivity 8.8 pg/mL (<58.9)
[2025-02-19 10:49] LABS: Urine Crystals Unidentified Few /HPF (None Seen); Urine Culture Reflex Order REFLEXED; Urine Microscopic Reflex YN ORDER UMIC; Urine WBC Clump Rare /HPF (None Seen); Urine Yeast (Budding) Moderate /HPF (None Seen)
[2025-02-19] MEDS ORDERED: CEFTRIAXONE 1000 MG/VIAL ONE (11:18)
--- NOTE | 2025-02-19 12:01 | RAD REPORT ---
Procedure: Chest Single View HISTORY: Syncope and weakness COMPARISON: 2018 FINDINGS: The lungs appear clear of acute infiltrate. No significant pleural effusion noted. The heart is normal size. IMPRESSION: No acute abnormality is displayed.
--- NOTE | 2025-02-19 12:04 | EDPHYS ---
Physician Documentation [facility] Name: Nathalia Alcala Age: 84 yrs Sex: Female : 1940 Arrival Date: 02/19/2025 Time: 09:37 Bed 17 Private MD: ED Physician Jose Earl HPI: 02/19 10:25 This 84 yrs old Female presents to ER via Wheelchair with complaints of dr5 Lightheaded. 10:25 The patient has experienced near-syncope, almost passed out, felt dizzy, felt faint, dr5 felt generally weak. Onset: The symptoms/episode began/occurred acutely. Patient is an 84-year-old female with history of hyperlipidemia, depression, hypothyroidism coming in with near syncope that occurred this morning. Patient reports that she was walking around doing her morning routine and when she went to make coffee felt lightheaded and had to bend over counter. Patient reports that she became weak and sat herself down to the ground where her found her. Patient denies loss of consciousness. Patient denies hitting her head. Patient reports that over the last week or 2 this has happened a couple of times where she is standing and just feels lightheaded. Patient reports that the episode lasted about a minute And then resolves. Patient denies pain, nausea, vomiting, chest pain, shortness of breath at this time.. Historical: - Allergies: 09:59 Lidocaine-Epinephrine; dr5 09:59 Morphine; dr5 09:59 Sulfa (Sulfonamide Antibiotics); dr5 09:59 Vicodin; dr5 09:59 Wasps; dr5 - PMHx: 09:59 Hypercholesterolemia; Depression; dr5 09:59 Hypothyroidism; dr5 - Immunization history:: Adult Immunizations unknown. - Infectious Disease History:: Denies. - Social history:: Smoking status: Patient denies any tobacco usage or history of. ROS: 10:25 Constitutional: as per hpi dr5 Exam: 10:25 Constitutional: This is a well developed, well nourished patient who is awake, alert, dr5 and in no acute distress. Head/Face: Normocephalic, atraumatic. Eyes: Pupils equal round and reactive to light, extra-ocular motions intact. Lids and lashes normal. Conjunctiva and sclera are non-icteric and not injected. Cornea within normal limits. Periorbital areas with no swelling, redness, or edema. Neck: Trachea midline, no thyromegaly or masses palpated, and no cervical lymphadenopathy. Supple, full range of motion without nuchal rigidity, or vertebral point tenderness. No Meningismus. Chest/axilla: Normal chest wall appearance and motion. Nontender with no deformity. No lesions are appreciated. Cardiovascular: Regular rate and rhythm with a normal S1 and S2. Normal PMI, no JVD. No pulse deficits. Respiratory: Lungs have equal breath sounds bilaterally, clear to auscultation. No rales, rhonchi or wheezes noted. No increased work of breathing, no retractions or nasal flaring. Abdomen/GI: Soft, non-tender, non-distended Back: No spinal tenderness. No costovertebral tenderness. Full range of motion. Skin: Warm, dry with normal turgor. Normal color with no rashes, no lesions, and no evidence of cellulitis. MS/ Extremity: Pulses equal, no cyanosis. Neurovascular intact. Full, normal range of motion. Neuro: Awake and alert, GCS 15, oriented to person, place, time, and situation. Cranial nerves II-XII grossly intact. Motor strength 5/5 in all extremities. Sensory grossly intact. Cerebellar exam normal. Normal gait. Vital Signs: 09:54 BP 123 / 57; Pulse 50; Resp 18; Temp 97.9; Pulse Ox 100% on R/A; Weight 58.51 kg; dr5 Height 5 ft. 3 in. ; Pain 0/10; 10:24 BP 118 / 53; Pulse 49; Resp 18; Pulse Ox 100% on R/A; af3 11:30 BP 126 / 45; Pulse 51; Resp 18; Pulse Ox 100% on R/A; af3 09:54 Body Mass Index 22.85 (58.51 kg, 160.02 cm) dr5 09:54 Pain Scale: Adult dr5 MDM: 09:44 Medical Screening Exam initiated dr5 12:24 Differential Diagnosis: cerebrovascular accident, Anemia, urinary tract infection, dr5 intracranial hemorrhage, CVA, elevated troponin, pneumonia. Data reviewed: vital signs, nurses notes, lab test result(s), CBC, white blood cell count, hemoglobin, hematocrit, platelets, electrolytes, sodium, potassium, chloride, serum bicarbonate, BUN, creatinine, serum glucose, urinalysis, bacteruria, EKG, radiologic studies, CT scan. Consideration of Admission/Observation Escalation of care including admission/observation considered. Escalation considered patient found to have intracranial hemorrhage. I considered the following discharge prescriptions or medication management in the emergency department I discussed and recommended Over The Counter medications, Medications were administered in the Emergency Department. See MAR. Independent interpretation of the following test(s) in the Emergency Department X-Ray: My interpretation is Independent temperature x-ray did not reveal infiltrates. client project coordinator: rate is 51 beats/min, Rhythm is sinus bradycardia, with no ectopy, Interpretation: bradycardia. Historians other than the Patient: Spouse/Significant Other: at bedside. Care significantly affected by the following chronic conditions: Hypothyroid, hyperlipidemia, depression. Care significantly affected by the following Social Determinants of Health: Poor access to healthcare and/or lack of insurance, Poor access to transportation, Problems related to employment. Counseling: I had a detailed discussion with the patient and/or guardian regarding the historical points, exam findings, and any diagnostic results supporting the discharge/admit diagnosis, the presence of at least one elevated blood pressure reading (>120/80) during this emergency department visit, lab results, radiology results, the need for outpatient follow up, for definitive care, a family practitioner, to return to the emergency department if symptoms worsen or persist or if there are any questions or concerns that arise at home. Medication response: Rocephin, normal saline. Response to treatment: the patient's symptoms have resolved after treatment, the patient's condition has returned to base line, the patient is now symptom free. Special discussion: I discussed with the patient/guardian in detail that at this point there is no indication for admission to the hospital. It is understood, however, that if the symptoms persist or worsen the patient needs to return immediately for re-evaluation. Based on the history and exam findings, there is no indication for further emergent testing or inpatient evaluation. I discussed with the patient/guardian the need to see the primary care provider for further evaluation of the symptoms. ED course: All labs and CT scan were discussed with patient and printed for her to take with her to her primary care doctor. Rocephin IV given and will give patient antibiotics to take next week. Will give patient antifungal. Recommend increase hydration. Also recommended patient have chair available in kitchen in case she gets lightheaded again to have a seat. All questions answered. Strict ER precautions given.. 02/19 09:54 Order name: CBC with Diff; Complete Time: 10:37 dr5 02/19 09:54 Order name: Magnesium; Complete Time: 10:48 [facility] 02/19 09:54 Order name: Protime (+inr); Complete Time: 10:37 [facility] 02/19 09:54 Order name: Ptt, Activated; Complete Time: 10:37 [facility] 02/19 09:54 Order name: Troponin High Sensitivity; Complete Time: 10:48 [facility] 02/19 09:54 Order name: CMP; Complete Time: 10:48 [facility] 02/19 09:54 Order name: UA Rfx Flash Cult if indicated; Complete Time: 10:53 [facility] 02/19 10:55 Order name: Urine Culture EDMS 02/19 09:54 Order name: CT Head Brain wo Cont; Complete Time: 10:37 [facility] 02/19 09:54 Order name: Chest Single View XRAY; Complete Time: 12:03 [facility] 02/19 09:54 Order name: EKG; Complete Time: 09:55 [facility] 02/19 09:54 Order name: Cardiac monitoring; Complete Time: 10:20 [facility] 02/19 09:54 Order name: EKG - Nurse/Tech; Complete Time: 10:20 [facility] 02/19 09:54 Order name: IV Saline Lock; Complete Time: 10:20 [facility] 02/19 09:54 Order name: Labs collected and sent; Complete Time: 10:20 [facility] 02/19 09:54 Order name: NPO; Complete Time: 10:29 [facility] 02/19 09:54 Order name: O2 Per Protocol; Complete Time: 10:29 [facility] 02/19 09:54 Order name: O2 Sat Monitoring; Complete Time: 10:20 [facility] EC:12 Rate is 54 beats/min. Rhythm is regular. QRS [place] is Normal. MT interval is normal at dr5 146 msec. QRS interval is normal at 72 msec. QT interval is normal at 446 msec. Clinical impression: Normal ECG, Sinus bradycardia, and No evidence of ischemia. Administered Medications: 10:42 Drug: NS 0.9% IV 1000 ml IV at 1000 ml once; to be given as a bolus over 60 minutes af3 Route: IV; Rate: 1000 ml; Site: right antecubital; 11:46 Follow up: IV Status: Completed infusion; IV Intake: 1000ml af3 11:29 Drug: Rocephin IV 1 grams IV at per protocol once; Given slow IV push per pharmacy af3 instructions Route: IV; Rate: per protocol; Site: right antecubital; 11:35 Follow up: IV Status: Completed infusion ph 11:58 Follow up: Response: No adverse reaction af3 Disposition: 15:04 Co-signature as Attending Physician, Jose Earl MD I reviewed the patient's care rn provided by the Advanced Practice Provider and agree with the diagnosis and treatment plan. Disposition Summary: 02/19/25 12:03 Discharge Ordered Notes: Location: Home dr5 Condition: Stable dr5 Diagnosis - UTI/ Urinary tract infection, site not specified dr5 - Candidiasis of vulva and vagina dr5 Followup: dr5 - With: Emergency Department - When: As needed - Reason: Worsening of condition Followup: dr5 - With: Private Physician - When: 1 - 2 days - Reason: Recheck today's complaints, Continuance of care, Re-evaluation by your physician Discharge Instructions: - Discharge Summary Sheet dr5 - Vaginal Yeast Infection, Adult dr5 - Urinary Tract Infection, Adult, [id number] dr5 Forms: - Medication Reconciliation Form dr5 - Antibiotic Education dr5 - Patient Portal Instructions dr5 - Leadership Thank You Letter dr5 Prescriptions: - Cephalexin 500 mg Oral Capsule - take 1 capsule ORAL route every 12 hours for 10 days; 20 capsule; Refills: 0, dr5 Product Selection Permitted - Fluconazole 150 mg Oral tablet - take 1 tablet ORAL route one time; 1 tablet; Refills: 0, Product Selection dr5 Permitted Signatures: Dispatcher [employer] EDJose Bowers MD MD rn Hall, Patricia, RN RN ph Fry, Ashley, RN RN af3 Kvng Cervantes FNP-C EMBROIDERER-Cdr5 Corrections: (The following items were deleted from the chart) 09:57 09:54 BP 123 / 57; Pulse 5bpm; Resp 18bpm; Pulse Ox 100% RA; Temp 97.9F; 58.51 kg; dr5 Height 5 ft. 3 in.; BMI: 22.8; Pain 0/10, Adult; dr5
--- NOTE | 2025-02-19 12:04 | ER ---
Nurse's Notes [facility] Name: Nathalia Alcala Age: 84 yrs Sex: Female : 1940 Arrival Date: 02/19/2025 Time: 09:37 Bed 17 Private MD: Diagnosis: UTI/ Urinary tract infection, site not specified;Candidiasis of vulva and vagina Presentation: 02/19 10:02 Chief complaint: Patient states: stood up today , was walking around, went to make iw coffee and felt light headed and weak, she leaned over the counter, slid down to sit down, no LOC, did not hit head. Coronavirus screen: At this time, the client does not indicate any symptoms associated with coronavirus-19. Ebola Screen: No symptoms or risks identified at this time. Initial Sepsis Screen: Does the patient meet any 2 criteria? No. Patient's initial sepsis screen is negative. Does the patient have a suspected source of infection? No. Patient's initial sepsis screen is negative. Risk Assessment: Do you want to hurt yourself or someone else? Patient reports no desire to harm self or others. Onset of symptoms was February 19, 2025. 10:02 Acuity: KHALIF 3 iw 10:02 Method Of Arrival: Wheelchair iw Historical: - Allergies: 09:59 Lidocaine-Epinephrine; dr5 09:59 Morphine; dr5 09:59 Sulfa (Sulfonamide Antibiotics); dr5 09:59 Vicodin; dr5 09:59 Wasps; dr5 - PMHx: 09:59 Hypercholesterolemia; Depression; dr5 09:59 Hypothyroidism; dr5 - Immunization history:: Adult Immunizations unknown. - Infectious Disease History:: Denies. - Social history:: Smoking status: Patient denies any tobacco usage or history of. Screenin:[facility] ED Fall Risk Assessment (Adult) History of falling in the last 3 months, ph including since admission No falls in past 3 months (0 pts) Confusion or Disorientation No (0 pts) Intoxicated or Sedated No (0 pts) Impaired Gait No (0 pts) Mobility Assist Device Used No (0 pt) Altered Elimination No (0 pt) Score/Fall Risk Level 0 - 2 = Low Risk Oriented to surroundings, Maintained a safe environment, Hourly rounding (assess needs \T\ fall precautionary measures) done. Abuse screen: Denies threats or abuse. Denies injuries from another. Nutritional screening: No deficits noted. Tuberculosis screening: No symptoms or risk factors identified. Assessment: 10:22 General: Appears in no apparent distress. comfortable, well groomed, Behavior is calm, af3 cooperative, appropriate for age. Pain: Denies pain. Neuro: Level of Consciousness is awake, alert, obeys commands, Oriented to person, place, time, situation, Appropriate for age. Neuro: Reports dizziness. Cardiovascular: Patient's skin is warm and dry. Respiratory: Airway is patent Respiratory effort is even, unlabored, Respiratory pattern is regular, symmetrical. GI: No signs and/or symptoms were reported involving the gastrointestinal system. : No signs and/or symptoms were reported regarding the genitourinary system. EENT: No signs and/or symptoms were reported regarding the EENT system. Derm: Skin is intact, Skin is pink, warm \T\ dry. Musculoskeletal: Circulation, motion, and sensation intact. Range of motion: intact in all extremities. 11:22 Reassessment: Patient appears in no apparent distress at this time. No changes from af3 previously documented assessment. Patient and/or family updated on plan of care and expected duration. Pain level reassessed. Patient is alert, oriented x 3, equal unlabored respirations, skin warm/dry/pink. Vital Signs: 09:54 BP 123 / 57; Pulse 50; Resp 18; Temp 97.9; Pulse Ox 100% on R/A; Weight 58.51 kg; dr5 Height 5 ft. 3 in. ; Pain 0/10; 10:24 BP 118 / 53; Pulse 49; Resp 18; Pulse Ox 100% on R/A; af3 11:30 BP 126 / 45; Pulse 51; Resp 18; Pulse Ox 100% on R/A; af3 09:54 Body Mass Index 22.85 (58.51 kg, 160.02 cm) dr5 09:54 Pain Scale: Adult dr5 ED Course: 09:42 Patient arrived in ED. cj3 09:44 Kvng Cervantes [facility]C [facility]. dr5 09:44 Jose Earl MD is Attending Physician. dr5 10:04 Triage completed. iw 10:04 Arm band placed on. iw 10:21 Inserted saline lock: 20 gauge in right antecubital area, using aseptic technique. af3 Blood collected. Flushed with 10 mL NS. 10:21 Initial lab(s) drawn, by ED staff, sent to lab. af3 10:21 EKG done, by ED staff, reviewed by Kvng DO. af3 10:29 Urine collected: clean catch specimen. ph 10:30 CT Head Brain wo Cont In Process Unspecified. EDMS 10:39 Patient has correct armband on for positive identification. Bed in low position. Call ph light in reach. Side rails up X 1. Pulse ox on. NIBP on. Door closed. Noise minimized. 10:53 No provider procedures requiring assistance completed. af3 10:59 Barb Antunez, RN is Primary Nurse. ph 11:30 Chest Single View XRAY In Process Unspecified. EDMS 12:21 Provided Education on: call light use. ph 12:21 IV discontinued, intact, bleeding controlled, No redness/swelling at site. Pressure ph dressing applied. Administered Medications: 10:42 Drug: NS 0.9% IV 1000 ml IV at 1000 ml once; to be given as a bolus over 60 minutes af3 Route: IV; Rate: 1000 ml; Site: right antecubital; 11:46 Follow up: IV Status: Completed infusion; IV Intake: 1000ml af3 11:29 Drug: Rocephin IV 1 grams IV at per protocol once; Given slow IV push per pharmacy af3 instructions Route: IV; Rate: per protocol; Site: right antecubital; 11:35 Follow up: IV Status: Completed infusion ph 11:58 Follow up: Response: No adverse reaction af3 Medication: 10:38 VIS not applicable for this client. ph Intake: 11:46 IV: 1000ml; Total: 1000ml. af3 Outcome: 12:03 Discharge ordered by MD. dr5 12:21 Discharged to home via wheelchair, with significant other, ph 12:21 Condition: stable 12:21 Discharge instructions given to patient, Instructed on discharge instructions, follow up and referral plans. medication usage, Demonstrated understanding of instructions, follow-up care, medications, Prescriptions given X 2, 12:22 Patient left the ED. ph Signatures: Dispatcher [employer] EDMS Amanda Guy RN RN Barb Antunez RN RN Nain, ROXANA Chung RN af3 Kvng Cervantes FNP-C FNP-Cdr5 Avinash, Jerilyn cj3
[2025-02-19 12:39] VITALS: TEMP 97.9; O2SAT 100
[2025-02-19 12:42] VITALS: BP 126/45
== END 2025-02-19 12:22 | disposition home or self-care (01) ==
LOC: ER 09:37
DX: N39.0 Urinary tract infection, site not specified (principal); B37.31 Acute candidiasis of vulva and vagina
CPT/HCPCS: 96361; 93005; 87088; 85025; 81001; 87086; 36415; 83735; 85610; 85730; 84484; 80053; 70450; 71045; 96374; 99284; J7030; J0696